=== PATIENT | female | born 1995 | race African-American/Black ===

== ENCOUNTER 2018-02-25 13:17 | Emergency (ER) | payer OTHER ==
[2018-02-25 14:19] LABS: Basophils # (auto) 0 uL; Basophils % (auto) 0.4 % (0.0-2.0); Eosinophils # (auto) 0.1 uL; Eosinophils % (auto) 1.5 % (0.0-7.0); Hematocrit 39.8 % (36.0-46.0); Hemoglobin 13.4 g/dL (12.2-16.2); Lymphocytes # (auto) 0.9 uL; Lymphocytes % (auto) 14.7 % (10.0-50.0); Mean Corpuscular Hemoglobin 30.3 pg (28.0-32.0); Mean Corpuscular Hgb Conc. 33.7 g/dL (32.0-36.0); Mean Corpuscular Volume 89.8 fL (80.0-100.0); Monocytes # (auto) 0.2 uL; Monocytes % (auto) 3.6 % (0.0-12.0); Neutrophils # (auto) 4.7 uL; Neutrophils % (auto) 79.8 % (37.0-80.0); Nucleated Red Blood Cells % 0.1 %; Platelet Count (auto) 106 10^3/uL (140-450); Red Blood Cells 4.43 10^6/uL (4.0-5.20); Red Cell Distribution Width 14.7 % (11.8-14.3); White Blood Cell 5.9 10^3/uL (4.4-10.8)
[2018-02-25 14:25] LABS: Urine Bacteria NONE SEEN /hpf (None Seen); Urine Blood Negative /uL (Negative); Urine Mucus FEW (None Seen); Urine Specific Gravity 1.017 (1.001-1.035); Urine WBC 8 /hpf (0 - 5)
[2018-02-25 14:34] LABS: Albumin 3.4 g/dL (3.4-5.0); BUN/Creatinine Ratio 22.4; Bilirubin, Total 0.3 mg/dL (0.2-1.0); Calcium 8.6 mg/dL (8.5-10.1); Potassium 3.4 mmol/L (3.5-5.1)
[2018-02-25] MEDS ORDERED: ACETAMINOPHEN 650 mg PER 20 mL UD PO ONE (16:15)
[2018-02-25] MEDS ORDERED: ACETAMINOPHEN 650 mg PER 20 mL UD ONE (16:16)
[2018-02-25 16:32] VITALS: BP 127/95
== END 2018-02-25 15:41 | disposition home or self-care (01) ==
LOC: EDBD 13:17 → ER 13:22
DX: R56.9 Unspecified convulsions (principal); N39.0 Urinary tract infection, site not specified
CPT/HCPCS: 36415; 80053; 81001; 85025

== ENCOUNTER 2018-04-14 09:38 | Inpatient (IN) | payer MEDICAID, OTHER ==
[~2018-04-14] VITALS: Ht 165.1 cm; Wt 26.8 kg
[2018-04-14] MEDS ORDERED: LIDOCAINE 2% (LOCAL ANESTH.) PF 5ml SDV ONE (11:08)
[2018-04-14] MEDS ORDERED: GASTROGRAFIN 30 ML SOL ONE ×4 (11:28→14:58)
[2018-04-14] MEDS ORDERED: SODIUM CHLORIDE 0.9% 500 ML IVB ONE ×2 (15:34→16:15)
[2018-04-14] MEDS ORDERED: SODIUM CHLORIDE 0.9% 1,000 ML IV SCH (15:51)
[2018-04-14] MEDS ORDERED: NITROGLYCERIN 0.4 MG SL TAB SL PRN (16:00)
[2018-04-14] MEDS ORDERED: PROMETHAZINE HCL 25 MG/ML 1ML IV PRN (16:00)
[2018-04-14] MEDS ORDERED: MORPHINE SULF INJ 2 MG/ML SYRINGE 1ML IV PRN (16:00)
[2018-04-14] MEDS ORDERED: PANTOPRAZOLE 40 MG/10 ML VIAL IV ONE (16:00)
[2018-04-14 16:36] LABS: Basophils # (auto) 0 uL; Basophils % (auto) 0.4 % (0.0-2.0); Eosinophils # (auto) 0 uL; Eosinophils % (auto) 0.2 % (0.0-7.0); Hematocrit 43.8 % (36.0-46.0); Hemoglobin 14.4 g/dL (12.2-16.2); Lymphocytes # (auto) 1.6 uL; Lymphocytes % (auto) 13.2 % (10.0-50.0); Mean Corpuscular Hgb Conc. 32.8 g/dL (32.0-36.0); Mean Corpuscular Volume 91.4 fL (80.0-100.0); Monocytes # (auto) 0.5 uL; Neutrophils # (auto) 9.9 uL; Neutrophils % (auto) 82.2 % (37.0-80.0); Platelet Count (auto) 240 10^3/uL (140-450); Red Blood Cells 4.79 10^6/uL (4.0-5.20); Red Cell Distribution Width 15.4 % (11.8-14.3)
[2018-04-14 16:48] LABS: INR 0.99 (0.9-1.15); Partial Thromboplastin Time 26.7 sec (23.78-33.04); Prothrombin Time 10.6 sec (9.27-12.13)
[2018-04-14 17:23] LABS: BUN/Creatinine Ratio 43.4; Calcium 9.2 mg/dL (8.5-10.1); Potassium 3.9 mmol/L (3.5-5.1)
[2018-04-14] MEDS ORDERED: cefTRIAXone 1GM/10ml IVPUSH 10 ML IV ONE (17:45)
[2018-04-14] MEDS: D5W/SOD CHLO 0.9% 1,000 ML IV SCH (18:18)
[2018-04-14 20:30] VITALS: BP 104/64
[2018-04-14 21:42] VITALS: BP 104/64
[2018-04-15 05:13] VITALS: BP 104/57
[2018-04-15 08:32] VITALS: BP 105/54
[2018-04-15] MEDS: PANTOPRAZOLE 40 MG/10 ML VIAL IV SCH (09:52)
[2018-04-15] MEDS: cefTRIAXone 1GM/10ml IVPUSH 10 ML IV SCH (09:52)
[2018-04-15 13:00] VITALS: BP 95/56
[2018-04-15] MEDS: D5W/SOD CHLO 0.9% 1,000 ML IV SCH ×2 (13:23→16:00)
[2018-04-15] MEDS ORDERED: LORazepam 2MG/ML-1ML VIAL IV PRN (16:00)
[2018-04-15] MEDS ORDERED: FLUO-125 PO (16:19)
[2018-04-15] MEDS ORDERED: ARIP1TAB7 PO (16:19)
[2018-04-15] MEDS ORDERED: TRAZ50TA2 PO (16:19)
[2018-04-15] MEDS ORDERED: BACL10TA PO (16:19)
[2018-04-15 16:53] VITALS: BP 109/47
[2018-04-15] MEDS ORDERED: BACLOFEN 10 MG TAB PO PRN (17:00)
[2018-04-15 17:01] LABS: Urine Bacteria NONE SEEN /hpf (None Seen); Urine Blood Negative /uL (Negative); Urine Mucus FEW (None Seen); Urine Specific Gravity 1.024 (1.001-1.035); Urine WBC 12 /hpf (0 - 5)
[2018-04-15 22:00] VITALS: BP 105/56
[2018-04-15] MEDS ORDERED: traZODone HCL 50 MG TAB PO SCH (22:00)
[2018-04-16] MEDS: D5W/SOD CHLO 0.9% 1,000 ML IV SCH ×3 (02:23→20:51)
[2018-04-16 05:30] VITALS: BP 93/54
[2018-04-16 09:00] VITALS: BP 113/51
[2018-04-16] MEDS: LORazepam 2MG/ML-1ML VIAL IV PRN (09:04)
[2018-04-16] MEDS: cefTRIAXone 1GM/10ml IVPUSH 10 ML IV SCH (09:08)
[2018-04-16] MEDS ORDERED: ARIPIPRAZOLE 20 MG PO SCH (10:00)
[2018-04-16] MEDS ORDERED: FLUoxetine HCL 20 MG CAP PO SCH (10:00)
[2018-04-16] MEDS: PANTOPRAZOLE 40 MG/10 ML VIAL IV SCH (11:45)
[2018-04-16] MEDS: AMPICILLIN INJ 500 MG in SODIUM CHL 0.9% 50 ML IV SCH ×2 (11:46→18:42)
[2018-04-16] MEDS: LACTULOSE 20Gm/30ML SOLN PO PRN (11:47)
[2018-04-16] MEDS ORDERED: MAGNESIUM CITRATE SOLUTION 300 ML BTL NG ONE (12:15)
[2018-04-16 13:00] VITALS: BP 120/53
[2018-04-16] MEDS ORDERED: PPN PER PHARMACY 0 ML IV SCH (13:00)
[2018-04-16 15:00] LABS: Albumin 2.8 g/dL (3.4-5.0); BUN/Creatinine Ratio 29.4; Bilirubin, Total 0.3 mg/dL (0.2-1.0); Magnesium 2.3 mg/dL (1.6-2.6); Potassium 3.1 mmol/L (3.5-5.1); Total Protein 7.1 g/dL (6.4-8.2)
[2018-04-16] MEDS ORDERED: POTASSIUM PHOSPHATE 44 MEQ in D5W 5% 250 ML IV ONE (16:00)
[2018-04-16 16:53] VITALS: BP 116/74
[2018-04-16] MEDS: CLINIMIX PER PHARMACY IV NR (21:00)
[2018-04-16 21:33] VITALS: BP 113/64
[2018-04-16] MEDS ORDERED: DOCUSATE ORAL LIQUID 100 MG/10 ML UD GT SCH (22:00)
[2018-04-17] MEDS ORDERED: DEXTROSE (50%) 50ML SYRG IV SCH
[2018-04-17] MEDS: AMPICILLIN INJ 500 MG in SODIUM CHL 0.9% 50 ML IV SCH ×4 (00:10→21:11)
[2018-04-17] MEDS: ACCU-CHEK COMFORT CURVE STRIP VI SCH ×4 (00:11→18:44)
[2018-04-17] MEDS: MORPHINE SULF INJ 2 MG/ML SYRINGE 1ML IV PRN ×2 (03:58→21:02)
[2018-04-17 04:41] VITALS: BP 137/80
[2018-04-17] MEDS: InsuLIN REG 1unit/0.01ml Soln (100units/ml) SC SCH ×4 (05:21→18:00)
[2018-04-17] MEDS: LORazepam 2MG/ML-1ML VIAL IV PRN (06:07)
[2018-04-17 09:00] VITALS: BP 130/60
[2018-04-17] MEDS: PANTOPRAZOLE 40 MG/10 ML VIAL IV SCH (10:32)
[2018-04-17] MEDS: cefTRIAXone 1GM/10ml IVPUSH 10 ML IV SCH (10:33)
[2018-04-17 11:00] LABS: Albumin 2.8 g/dL (3.4-5.0); BUN/Creatinine Ratio 21.4; Bilirubin, Total 0.4 mg/dL (0.2-1.0); Calcium 8.1 mg/dL (8.5-10.1); Phosphorus 2.5 mg/dL (2.5-4.90); Potassium 3.6 mmol/L (3.5-5.1); Pre Albumin 15.8 mg/dL (20.0-40.0); Total Protein 7.2 g/dL (6.4-8.2)
[2018-04-17 13:00] VITALS: BP 120/58
[2018-04-17] MEDS ORDERED: FUROSEMIDE 20 MG/2 ML VIAL ONE (14:22)
[2018-04-17] MEDS: D5W/SOD CHLO 0.9% 1,000 ML IV SCH (16:01)
[2018-04-17 17:00] VITALS: BP 116/56
[2018-04-17] MEDS: CLINIMIX PER PHARMACY IV NR (19:49)
[2018-04-17] MEDS ORDERED: PPN PER PHARMACY IV NR ×16 (20:00)
[2018-04-17] MEDS: PPN PER PHARMACY IV NR ×8 (20:52)
[2018-04-17 21:38] VITALS: BP 124/72
[2018-04-18] MEDS: AMPICILLIN INJ 500 MG in SODIUM CHL 0.9% 50 ML IV SCH ×4 (03:14→21:58)
[2018-04-18 05:00] VITALS: BP 114/59
[2018-04-18] MEDS: InsuLIN REG 1unit/0.01ml Soln (100units/ml) SC SCH ×4 (06:00→18:00)
[2018-04-18] MEDS: ACCU-CHEK COMFORT CURVE STRIP VI SCH ×4 (06:11→18:09)
[2018-04-18 06:43] LABS: Basophils # (auto) 0 uL; Basophils % (auto) 0.3 % (0.0-2.0); Eosinophils # (auto) 0.1 uL; Eosinophils % (auto) 1.4 % (0.0-7.0); Hematocrit 38.9 % (36.0-46.0); Hemoglobin 13.1 g/dL (12.2-16.2); Mean Corpuscular Hemoglobin 30.8 pg (28.0-32.0); Mean Corpuscular Hgb Conc. 33.7 g/dL (32.0-36.0); Mean Corpuscular Volume 91.2 fL (80.0-100.0); Monocytes # (auto) 0.6 uL; Neutrophils # (auto) 7.1 uL; Neutrophils % (auto) 72.3 % (37.0-80.0); Platelet Count (auto) 234 10^3/uL (140-450); Red Blood Cells 4.27 10^6/uL (4.0-5.20); Red Cell Distribution Width 14.6 % (11.8-14.3); White Blood Cell 9.9 10^3/uL (4.4-10.8)
[2018-04-18 07:07] LABS: Albumin 3.2 g/dL (3.4-5.0); BUN/Creatinine Ratio 56.3; Bilirubin, Total 0.3 mg/dL (0.2-1.0); Calcium 8.7 mg/dL (8.5-10.1); Magnesium 2.3 mg/dL (1.6-2.6); Phosphorus 3.1 mg/dL (2.5-4.90); Potassium 3.4 mmol/L (3.5-5.1)
[2018-04-18 09:00] VITALS: BP 118/62
[2018-04-18] MEDS: cefTRIAXone 1GM/10ml IVPUSH 10 ML IV SCH (09:55)
[2018-04-18] MEDS: PANTOPRAZOLE 40 MG/10 ML VIAL IV SCH (09:56)
[2018-04-18] MEDS: LORazepam 2MG/ML-1ML VIAL IV PRN ×2 (10:24→20:19)
[2018-04-18] MEDS ORDERED: POTASSIUM CHL 20MEQ/100ML 100 ML IV ONE (10:30)
[2018-04-18] MEDS: D5W/SOD CHLO 0.9% 1,000 ML IV SCH (12:00)
[2018-04-18 13:00] VITALS: BP 120/60
[2018-04-18] MEDS: MORPHINE SULF INJ 2 MG/ML SYRINGE 1ML IV PRN ×2 (16:39→23:05)
[2018-04-18 17:00] VITALS: BP 120/58
[2018-04-18] MEDS: PPN PER PHARMACY IV NR ×8 (20:00)
[2018-04-18] MEDS ORDERED: PPN PER PHARMACY IV NR ×10 (20:00)
[2018-04-18] MEDS ORDERED: TPN PER PHARMACY IV NR ×9 (20:00)
[2018-04-18 20:52] VITALS: BP 115/69
[2018-04-19] MEDS: MORPHINE SULF INJ 2 MG/ML SYRINGE 1ML IV PRN (03:19)
[2018-04-19] MEDS: AMPICILLIN INJ 500 MG in SODIUM CHL 0.9% 50 ML IV SCH ×4 (04:08→21:25)
[2018-04-19 05:09] VITALS: BP 148/70
[2018-04-19] MEDS: ACCU-CHEK COMFORT CURVE STRIP VI SCH ×4 (05:43→17:14)
[2018-04-19] MEDS: InsuLIN REG 1unit/0.01ml Soln (100units/ml) SC SCH ×4 (05:43→17:14)
[2018-04-19 06:08] LABS: Albumin 3.2 g/dL (3.4-5.0); BUN/Creatinine Ratio 65.4; Bilirubin, Total 0.3 mg/dL (0.2-1.0); Calcium 8.7 mg/dL (8.5-10.1); Magnesium 2.3 mg/dL (1.6-2.6); Phosphorus 3.5 mg/dL (2.5-4.90); Potassium 3.9 mmol/L (3.5-5.1)
[2018-04-19 08:00] VITALS: BP 120/63
[2018-04-19 08:31] VITALS: BP 120/63
[2018-04-19] MEDS: D5W/SOD CHLO 0.9% 1,000 ML IV SCH ×2 (09:01→10:00)
[2018-04-19] MEDS: cefTRIAXone 1GM/10ml IVPUSH 10 ML IV SCH (09:01)
[2018-04-19] MEDS: PANTOPRAZOLE 40 MG/10 ML VIAL IV SCH (09:01)
[2018-04-19] MEDS: LEVOFLOXACIN 500MG 100 ML IV SCH (11:54)
[2018-04-19 12:34] VITALS: BP 118/73
[2018-04-19 16:54] VITALS: BP 143/83
[2018-04-19] MEDS ORDERED: PPN PER PHARMACY IV NR ×10 (20:00)
[2018-04-19 21:15] VITALS: BP 104/69
[2018-04-20] MEDS: ACCU-CHEK COMFORT CURVE STRIP VI SCH ×4 (00:06→17:35)
[2018-04-20] MEDS: MORPHINE SULFATE 4 MG/ML SYR/VIAL IV PRN ×2 (00:44→21:13)
[2018-04-20] MEDS: LORazepam 2MG/ML-1ML VIAL IV PRN (01:29)
[2018-04-20] MEDS: AMPICILLIN INJ 500 MG in SODIUM CHL 0.9% 50 ML IV SCH ×3 (04:27→21:15)
[2018-04-20 05:11] VITALS: BP 100/52
[2018-04-20] MEDS: InsuLIN REG 1unit/0.01ml Soln (100units/ml) SC SCH ×4 (06:00→17:35)
[2018-04-20 08:02] LABS: Albumin 3.3 g/dL (3.4-5.0); BUN/Creatinine Ratio 51.3; Bilirubin, Total 0.3 mg/dL (0.2-1.0); Calcium 8.9 mg/dL (8.5-10.1); Magnesium 2.4 mg/dL (1.6-2.6); Phosphorus 3.4 mg/dL (2.5-4.90); Potassium 4.4 mmol/L (3.5-5.1); Pre Albumin 19.8 mg/dL (20.0-40.0); Total Protein 8.2 g/dL (6.4-8.2)
[2018-04-20] MEDS: D5W/SOD CHLO 0.9% 1,000 ML IV SCH (09:30)
[2018-04-20 09:44] VITALS: BP 116/82
[2018-04-20] MEDS: PANTOPRAZOLE 40 MG/10 ML VIAL IV SCH (10:36)
[2018-04-20] MEDS: LEVOFLOXACIN 500MG 100 ML IV SCH (13:21)
[2018-04-20] MEDS ORDERED: SODIUM CHLORIDE LOCK 10 ML ONE (14:00)
[2018-04-20] MEDS ORDERED: diphenhdrAMINE HCL 50 MG/1 ML VL ONE (14:00)
[2018-04-20] MEDS ORDERED: LIDOCAINE VISCOUS 2% 15ML UD ONE (14:00)
[2018-04-20] MEDS ORDERED: MIDAZOLAM HCL 5 MG/ML-1ML VIAL ONE (14:00)
[2018-04-20] MEDS ORDERED: fentaNYL CITRATE 100 MCG/2 ML VL ONE (14:01)
[2018-04-20 14:43] VITALS: BP 122/69
[2018-04-20] MEDS ORDERED: PROPOFOL 10 MG/ML 20 ML IV ONE (14:57)
[2018-04-20] MEDS ORDERED: LIDOCAINE 2% (LOCAL ANESTH.) PF 5ml SDV ONE (14:57)
[2018-04-20] MEDS ORDERED: ceFAZolin 1GM/50ML 50 ML IV ONE (15:23)
[2018-04-20] MEDS ORDERED: HYDROmorphone HCL 2 MG/ML VL IV PRN (15:30)
[2018-04-20] MEDS ORDERED: LABETALOL HCL 5 MG/ML 4ML SYRINGE IV PRN (15:30)
[2018-04-20] MEDS: FLUCONAZOLE 200MG/100ML 100 ML IV SCH (17:34)
[2018-04-20] MEDS ORDERED: PPN PER PHARMACY IV NR ×9 (20:00)
[2018-04-20 21:30] VITALS: BP 158/78
[2018-04-21] MEDS: LORazepam 2MG/ML-1ML VIAL IV PRN (00:37)
[2018-04-21] MEDS: ACCU-CHEK COMFORT CURVE STRIP VI SCH ×4 (00:38→19:30)
[2018-04-21] MEDS: AMPICILLIN INJ 500 MG in SODIUM CHL 0.9% 50 ML IV SCH ×5 (04:07→22:29)
[2018-04-21 05:00] VITALS: BP 110/57
[2018-04-21] MEDS: InsuLIN REG 1unit/0.01ml Soln (100units/ml) SC SCH ×4 (06:00→18:00)
[2018-04-21 06:14] LABS: Basophils # (auto) 0 uL; Basophils % (auto) 0.5 % (0.0-2.0); Eosinophils # (auto) 0.4 uL; Eosinophils % (auto) 5.1 % (0.0-7.0); Hematocrit 39.3 % (36.0-46.0); Lymphocytes # (auto) 2.5 uL; Lymphocytes % (auto) 29.3 % (10.0-50.0); Mean Corpuscular Hemoglobin 30.2 pg (28.0-32.0); Mean Corpuscular Hgb Conc. 33.1 g/dL (32.0-36.0); Mean Corpuscular Volume 91.3 fL (80.0-100.0); Monocytes # (auto) 0.6 uL; Monocytes % (auto) 6.5 % (0.0-12.0); Neutrophils % (auto) 58.6 % (37.0-80.0); Nucleated Red Blood Cells % 0.1 %; Platelet Count (auto) 231 10^3/uL (140-450); Red Blood Cells 4.31 10^6/uL (4.0-5.20); Red Cell Distribution Width 14.8 % (11.8-14.3); White Blood Cell 8.6 10^3/uL (4.4-10.8)
[2018-04-21] MEDS: D5W/SOD CHLO 0.9% 1,000 ML IV SCH (06:28)
[2018-04-21 06:38] LABS: Albumin 2.9 g/dL (3.4-5.0); Bilirubin, Total 0.3 mg/dL (0.2-1.0); Calcium 8.8 mg/dL (8.5-10.1); Magnesium 2.3 mg/dL (1.6-2.6); Phosphorus 3.1 mg/dL (2.5-4.90); Potassium 3.7 mmol/L (3.5-5.1); Total Protein 7.3 g/dL (6.4-8.2)
[2018-04-21 09:22] VITALS: BP 116/70
[2018-04-21] MEDS: LEVOFLOXACIN 500MG 100 ML IV SCH (11:00)
[2018-04-21 14:38] VITALS: BP 117/69
[2018-04-21] MEDS: FLUCONAZOLE 200MG/100ML 100 ML IV SCH (15:39)
[2018-04-21] MEDS: PANTOPRAZOLE 40 MG/10 ML VIAL IV SCH (15:39)
[2018-04-21 17:16] VITALS: BP 144/73
[2018-04-21] MEDS ORDERED: PPN PER PHARMACY IV NR ×11 (20:00)
[2018-04-21 22:00] VITALS: BP 123/68
[2018-04-21] MEDS: MORPHINE SULFATE 4 MG/ML SYR/VIAL IV PRN (22:30)
[2018-04-21] MEDS: LACTULOSE 20Gm/30ML SOLN PO PRN (22:30)
[2018-04-22] MEDS ORDERED: Jevity 1.2 Cal/Fiber 1 Liter GT SCH (00:15)
[2018-04-22] MEDS: ACCU-CHEK COMFORT CURVE STRIP VI SCH ×3 (00:29→12:00)
[2018-04-22] MEDS: AMPICILLIN INJ 500 MG in SODIUM CHL 0.9% 50 ML IV SCH ×3 (04:15→16:00)
[2018-04-22] MEDS: D5W/SOD CHLO 0.9% 1,000 ML IV SCH (04:42)
[2018-04-22] MEDS: MORPHINE SULFATE 4 MG/ML SYR/VIAL IV PRN ×3 (04:52→15:21)
[2018-04-22 05:00] VITALS: BP 157/81
[2018-04-22] MEDS: InsuLIN REG 1unit/0.01ml Soln (100units/ml) SC SCH ×3 (06:00→12:00)
[2018-04-22 06:13] LABS: Albumin 3.2 g/dL (3.4-5.0); BUN/Creatinine Ratio 51.5; Bilirubin, Total 0.5 mg/dL (0.2-1.0); Calcium 8.9 mg/dL (8.5-10.1); Magnesium 1.9 mg/dL (1.6-2.6); Phosphorus 3.6 mg/dL (2.5-4.90); Potassium 3.7 mmol/L (3.5-5.1)
[2018-04-22 09:19] VITALS: BP 100/75
[2018-04-22] MEDS ORDERED: BACLOFEN 10 MG TAB PEG PRN (09:45)
[2018-04-22] MEDS ORDERED: LACTULOSE 20Gm/30ML SOLN PEG PRN (09:45)
[2018-04-22] MEDS ORDERED: LORazepam 2MG/ML-1ML VIAL IV PRN (09:45)
[2018-04-22] MEDS ORDERED: FLUC200T50 PO (09:55)
[2018-04-22] MEDS ORDERED: LACT10SO3 PEG (09:55)
[2018-04-22] MEDS ORDERED: LEVO-28 PO (09:55)
[2018-04-22] MEDS ORDERED: AMPI500C8 PO (09:55)
[2018-04-22] MEDS ORDERED: FLUoxetine HCL 20 MG CAP PEG SCH (10:00)
[2018-04-22] MEDS ORDERED: ABILIFY 20 MG PEG SCH (10:00)
[2018-04-22] MEDS: PANTOPRAZOLE 40 MG/10 ML VIAL IV SCH (11:08)
[2018-04-22] MEDS: FLUCONAZOLE 200MG/100ML 100 ML IV SCH (11:54)
[2018-04-22 12:41] VITALS: BP 108/72
[2018-04-22] MEDS: LEVOFLOXACIN 500MG 100 ML IV SCH (14:41)
[2018-04-22 17:04] VITALS: BP 110/69
[2018-04-22] MEDS ORDERED: SODIUM ACETATE IV NR ×30 (20:00)
[2018-04-22] MEDS ORDERED: SODIUM CHLORIDE IV NR ×30 (20:00)
[2018-04-22] MEDS ORDERED: FAT EMULSION IV NR ×30 (20:00)
[2018-04-22] MEDS ORDERED: [UNRECOGNIZED DRUG - OTHER] IV NR ×30 (20:00)
[2018-04-22] MEDS ORDERED: traZODone HCL 50 MG TAB PEG SCH (22:00)
== END 2018-04-22 19:05 | disposition home health service (06) | DRG 254 ==
LOC: ER 09:38 → TELE 09:39 → TELE-CENTR 20:30 → CENTRAL 04-17 11:23
PROVIDERS: ADMIT Internal Medicine; ATTEND Internal Medicine
PROC: 0WJP8ZZ Inspection of Gastrointestinal Tract, Via Natural or Artificial Opening Endoscopic Approach (ICD-10-PCS; 2018-04-20)
PROC: 0D20XUZ Change Feeding Device in Upper Intestinal Tract, External Approach (ICD-10-PCS; principal; 2018-04-20 14:45)
DX: Z43.1 Encounter for attention to gastrostomy (principal); G93.40 Encephalopathy, unspecified; G82.50 Quadriplegia, unspecified; E43 Unspecified severe protein-calorie malnutrition; L89.154 Pressure ulcer of sacral region, stage 4; R13.10 Dysphagia, unspecified; N13.4 Hydroureter; Z74.01 Bed confinement status; G40.909 Epilepsy, unspecified, not intractable, without status epilepticus; Z68.1 Body mass index [BMI] 19.9 or less, adult; F71 Moderate intellectual disabilities; K56.41 Fecal impaction; N13.2 Hydronephrosis with renal and ureteral calculous obstruction; Z79.899 Other long term (current) drug therapy; Z96.89 Presence of other specified functional implants; Z53.9 Procedure and treatment not carried out, unspecified reason; K44.9 Diaphragmatic hernia without obstruction or gangrene; K29.70 Gastritis, unspecified, without bleeding; B96.5 Pseudomonas (aeruginosa) (mallei) (pseudomallei) as the cause of diseases classified elsewhere; B96.1 Klebsiella pneumoniae [K. pneumoniae] as the cause of diseases classified elsewhere; Z71.3 Dietary counseling and surveillance
CPT/HCPCS: 36415; 43246; 71045; 74018; 74021; 74176; 76775; 78707; 80048; 80053; 81001; 82040; 82962; 83735; 84100; 84132; 84478; 85025; 85610; 85730; 87077; 87081; 87086; 87186; 87205; 94761; A6257; C9113; J0690; J0696; J1450; J1956; J2001; J2250; J2704; J3480; J7042; J7060; J7131

== ENCOUNTER 2018-05-06 11:40 | Emergency (ER) | payer MEDICAID ==
[~2018-05-06] VITALS: Ht 180.3 cm; Wt 26.8 kg
[~2018-05-06 11:40] MED LIST: AMPI500C8 PO; ARIP1TAB7 PO; BACL10TA PO; FLUC200T50 PO; FLUO-125 PO; LACT10SO3 PEG; LEVO-28 PO; TRAZ50TA2 PO
[2018-05-06 11:54] VITALS: BP 99/42
[2018-05-06 13:04] LABS: Urine Bacteria MANY /hpf (None Seen); Urine Blood TRACE /uL (Negative); Urine Specific Gravity 1.013 (1.001-1.035); Urine WBC 28 /hpf (0 - 5)
== END 2018-05-06 13:37 | disposition home or self-care (01) ==
LOC: ER 11:40
DX: N39.0 Urinary tract infection, site not specified (principal)
CPT/HCPCS: 81001

== ENCOUNTER 2018-06-23 14:17 | Inpatient (IN) | payer MEDICAID ==
[~2018-06-23] VITALS: Ht 144.8 cm; Wt 47.8 kg
[2018-06-23] MEDS ORDERED: SODIUM CHLORIDE 0.9% 1,000 ML IVB ONE (15:15)
[2018-06-23] MEDS ORDERED: cefTRIAXone 1GM/50ML D5W 50 ML IV ONE (15:15)
[2018-06-23] MEDS ORDERED: ACETAMINOPHEN 650 mg PER 20 mL UD GT ONE (15:15)
[2018-06-23 15:35] LABS: Basophils # (auto) 0.1 uL; Basophils % (auto) 0.4 % (0.0-2.0); Eosinophils # (auto) 0.1 uL; Eosinophils % (auto) 0.5 % (0.0-7.0); Hemoglobin 12.8 g/dL (12.2-16.2); Lymphocytes # (auto) 1.9 uL; Lymphocytes % (auto) 15.7 % (10.0-50.0); Mean Corpuscular Hemoglobin 28.9 pg (28.0-32.0); Mean Corpuscular Hgb Conc. 32.8 g/dL (32.0-36.0); Mean Corpuscular Volume 88.1 fL (80.0-100.0); Monocytes # (auto) 1.1 uL; Monocytes % (auto) 8.9 % (0.0-12.0); Neutrophils # (auto) 9.1 uL; Neutrophils % (auto) 74.5 % (37.0-80.0); Platelet Count (auto) 286 10^3/uL (140-450); Red Blood Cells 4.43 10^6/uL (4.0-5.20); Red Cell Distribution Width 15.2 % (11.8-14.3); White Blood Cell 12.2 10^3/uL (4.4-10.8)
[2018-06-23 15:47] LABS: INR 1.05 (0.9-1.15); Prothrombin Time 11.2 sec (9.27-12.13)
[2018-06-23 15:53] LABS: Albumin 3.3 g/dL (3.4-5.0); Potassium 4.2 mmol/L (3.5-5.1)
[2018-06-23 15:57] LABS: Bilirubin, Total 0.6 mg/dL (0.2-1.0); Total Protein 8.8 g/dL (6.4-8.2)
[2018-06-23] MEDS: SODIUM CHLORIDE 0.9% 1,000 ML IV SCH (16:53)
[2018-06-23] MEDS ORDERED: NITROGLYCERIN 0.4 MG SL TAB SL PRN (17:00)
[2018-06-23] MEDS ORDERED: MORPHINE SULFATE 4 MG/ML SYR/VIAL IV PRN (17:00)
[2018-06-23] MEDS ORDERED: CLINDAMYCIN 600MG IV 50 ML IV ONE (17:00)
[2018-06-23] MEDS ORDERED: PROMETHAZINE HCL 25 MG/ML 1ML IV PRN (17:00)
[2018-06-23] MEDS ORDERED: ARIP1TAB7 PO (17:04)
[2018-06-23] MEDS ORDERED: BACL10TA PO (17:08)
[2018-06-23] MEDS ORDERED: [UNRECOGNIZED DRUG - CODE] PO (17:12)
[2018-06-23 17:25] LABS: Urine Bacteria FEW /hpf (None Seen); Urine Blood Negative /uL (Negative); Urine Specific Gravity 1.016 (1.001-1.035); Urine WBC 66 /hpf (0 - 5)
[2018-06-23] MEDS ORDERED: LORazepam 2MG/ML-1ML VIAL ONE (18:48)
[2018-06-23] MEDS: LORazepam 2MG/ML-1ML VIAL IV PRN (18:51)
[2018-06-23 19:50] VITALS: BP 110/45
[2018-06-23 22:33] VITALS: BP 127/60
[2018-06-23] MEDS: CLINDAMYCIN 600MG IV 50 ML IV SCH (23:30)
[2018-06-24] VITALS (8 sets, daily range): BP systolic 84–130; BP diastolic 44–84
[2018-06-24] MEDS: SODIUM CHLORIDE 0.9% 1,000 ML IV SCH ×3 (00:16→21:31)
[2018-06-24] MEDS ORDERED: ALBUMIN 5% 250 ML IV ONE (06:45)
[2018-06-24] MEDS: CLINDAMYCIN 600MG IV 50 ML IV SCH ×2 (07:06→14:00)
[2018-06-24 07:28] LABS: Basophils # (auto) 0 uL; Basophils % (auto) 0.5 % (0.0-2.0); Eosinophils # (auto) 0.2 uL; Eosinophils % (auto) 1.7 % (0.0-7.0); Hematocrit 35.4 % (36.0-46.0); Hemoglobin 11.1 g/dL (12.2-16.2); Lymphocytes # (auto) 3.7 uL; Lymphocytes % (auto) 38.5 % (10.0-50.0); Mean Corpuscular Hemoglobin 28.9 pg (28.0-32.0); Mean Corpuscular Hgb Conc. 31.4 g/dL (32.0-36.0); Monocytes # (auto) 0.8 uL; Monocytes % (auto) 8.7 % (0.0-12.0); Neutrophils # (auto) 4.9 uL; Neutrophils % (auto) 50.6 % (37.0-80.0); Platelet Count (auto) 225 10^3/uL (140-450); Red Blood Cells 3.84 10^6/uL (4.0-5.20); Red Cell Distribution Width 15.5 % (11.8-14.3); White Blood Cell 9.7 10^3/uL (4.4-10.8)
[2018-06-24] MEDS ORDERED: cefTRIAXone 1GM/50ML D5W 50 ML IV SCH (09:00)
[2018-06-24] MEDS ORDERED: ARIP1TAB7 PO (10:27)
[2018-06-24] MEDS ORDERED: VANCOMYCIN PER PHARMACY 0 MG IV SCH (16:45)
[2018-06-24] MEDS: Jevity 1.2 Cal/Fiber 1 Liter GT SCH (17:00)
[2018-06-24] MEDS: PIPERACILLIN-TAZOB 3.375GM 100 ML IV SCH (17:24)
[2018-06-24] MEDS: VANCOMYCIN 500 MG in D5W 5% 100 ML IV SCH (20:28)
[2018-06-24] MEDS: ASCORBIC ACID 500 MG TAB PO SCH (21:31)
[2018-06-24] MEDS: LORazepam 2MG/ML-1ML VIAL IV PRN (22:01)
[2018-06-25] MEDS: PIPERACILLIN-TAZOB 3.375GM 100 ML IV SCH ×3 (00:35→11:59)
[2018-06-25 05:00] VITALS: BP 86/38
[2018-06-25] MEDS ORDERED: SODIUM CHL 0.9% 250 ML IV ONE (05:06)
[2018-06-25] MEDS: VANCOMYCIN 500 MG in D5W 5% 100 ML IV SCH ×2 (05:39→17:52)
[2018-06-25] MEDS: SODIUM CHLORIDE 0.9% 1,000 ML IV SCH (05:39)
[2018-06-25] MEDS ORDERED: ALBUMIN 25% 100 ML IV ONE (07:15)
[2018-06-25 08:39] VITALS: BP 116/53
[2018-06-25] MEDS: ASCORBIC ACID 500 MG TAB PO SCH ×2 (09:28→23:36)
[2018-06-25] MEDS: MULTIPLE VITAMINS W/ MINERALS TAB PO SCH (09:28)
[2018-06-25] MEDS: ACETAMINOPHEN 500 MG TAB PO PRN (12:01)
[2018-06-25 12:29] VITALS: BP 124/64
[2018-06-25] MEDS ORDERED: NITROFURANTOIN (MONO) 100 mg CAP PO SCH (15:00)
[2018-06-25 16:53] VITALS: BP 119/67
[2018-06-25] MEDS ORDERED: ERTAPENEM SOD INJ 1 GM in SODIUM CHL 0.9% 50 ML IV ONE (18:00)
[2018-06-25 22:00] VITALS: BP 111/72
[2018-06-25] MEDS: MEROPENEM 1GM IVPB 100 ML IV SCH (22:00)
[2018-06-26] MEDS: SODIUM CHLORIDE 0.9% 1,000 ML IV SCH ×3 (01:46→14:46)
[2018-06-26 05:00] VITALS: BP 138/64
[2018-06-26] MEDS: VANCOMYCIN 500 MG in D5W 5% 100 ML IV SCH ×3 (05:26→22:02)
[2018-06-26] MEDS: MEROPENEM 1GM IVPB 100 ML IV SCH ×3 (05:27→22:00)
[2018-06-26 06:42] LABS: Basophils # (auto) 0 uL; Basophils % (auto) 0.4 % (0.0-2.0); Eosinophils # (auto) 0.4 uL; Eosinophils % (auto) 4.7 % (0.0-7.0); Hematocrit 35.1 % (36.0-46.0); Hemoglobin 11.8 g/dL (12.2-16.2); Lymphocytes # (auto) 2.6 uL; Lymphocytes % (auto) 35.3 % (10.0-50.0); Mean Corpuscular Hemoglobin 29.5 pg (28.0-32.0); Mean Corpuscular Hgb Conc. 33.5 g/dL (32.0-36.0); Monocytes # (auto) 0.5 uL; Monocytes % (auto) 6.9 % (0.0-12.0); Neutrophils # (auto) 3.9 uL; Neutrophils % (auto) 52.7 % (37.0-80.0); Nucleated Red Blood Cells % 0.1 %; Platelet Count (auto) 266 10^3/uL (140-450); Red Blood Cells 3.99 10^6/uL (4.0-5.20); Red Cell Distribution Width 15.1 % (11.8-14.3); White Blood Cell 7.4 10^3/uL (4.4-10.8)
[2018-06-26 06:49] LABS: Potassium 3.8 mmol/L (3.5-5.1)
[2018-06-26 06:53] LABS: Albumin 3.7 g/dL (3.4-5.0); BUN/Creatinine Ratio 20.7; Calcium 8.9 mg/dL (8.5-10.1)
[2018-06-26 06:56] LABS: Bilirubin, Total 0.4 mg/dL (0.2-1.0); Total Protein 7.6 g/dL (6.4-8.2)
[2018-06-26 09:00] VITALS: BP 123/82
[2018-06-26] MEDS: MULTIPLE VITAMINS W/ MINERALS TAB PO SCH (09:40)
[2018-06-26] MEDS: ASCORBIC ACID 500 MG TAB PO SCH ×2 (09:40→22:02)
[2018-06-26] MEDS ORDERED: ERTAPENEM SOD INJ 1 GM in SODIUM CHL 0.9% 50 ML IV SCH (10:00)
[2018-06-26 13:00] VITALS: BP 127/76
[2018-06-26 17:00] VITALS: BP 132/77
[2018-06-26] MEDS: FREE WATER GT SCH ×2 (17:51→23:35)
[2018-06-26 20:00] VITALS: BP 116/75
[2018-06-26 22:00] VITALS: BP 116/75
[2018-06-27] VITALS (7 sets, daily range): BP systolic 113–149; BP diastolic 74–95
[2018-06-27] MEDS: SODIUM CHLORIDE 0.9% 1,000 ML IV SCH ×3 (03:50→22:04)
[2018-06-27] MEDS: FREE WATER GT SCH ×3 (05:03→18:00)
[2018-06-27] MEDS: MEROPENEM 1GM IVPB 100 ML IV SCH ×3 (05:08→22:00)
[2018-06-27] MEDS: VANCOMYCIN 500 MG in D5W 5% 100 ML IV SCH ×3 (06:00→22:06)
[2018-06-27] MEDS: MULTIPLE VITAMINS W/ MINERALS TAB PO SCH (10:48)
[2018-06-27] MEDS: ASCORBIC ACID 500 MG TAB PO SCH ×2 (10:48→22:06)
[2018-06-28] MEDS: FREE WATER GT SCH ×5 (00:28→23:21)
[2018-06-28 05:00] VITALS: BP 99/54
[2018-06-28] MEDS: VANCOMYCIN 500 MG in D5W 5% 100 ML IV SCH (05:06)
[2018-06-28] MEDS: MEROPENEM 1GM IVPB 100 ML IV SCH ×3 (05:06→21:07)
[2018-06-28 06:22] LABS: Basophils # (auto) 0 uL; Basophils % (auto) 0.3 % (0.0-2.0); Eosinophils # (auto) 0.1 uL; Eosinophils % (auto) 1.3 % (0.0-7.0); Hematocrit 40.2 % (36.0-46.0); Hemoglobin 13.1 g/dL (12.2-16.2); Lymphocytes # (auto) 2.5 uL; Lymphocytes % (auto) 22.7 % (10.0-50.0); Mean Corpuscular Hemoglobin 28.6 pg (28.0-32.0); Mean Corpuscular Hgb Conc. 32.6 g/dL (32.0-36.0); Mean Corpuscular Volume 87.6 fL (80.0-100.0); Monocytes # (auto) 0.6 uL; Monocytes % (auto) 5.7 % (0.0-12.0); Neutrophils # (auto) 7.8 uL; Nucleated Red Blood Cells % 0.1 %; Platelet Count (auto) 312 10^3/uL (140-450); Red Blood Cells 4.59 10^6/uL (4.0-5.20); Red Cell Distribution Width 15.2 % (11.8-14.3); White Blood Cell 11.1 10^3/uL (4.4-10.8)
[2018-06-28] MEDS: SODIUM CHLORIDE 0.9% 1,000 ML IV SCH ×2 (06:24→18:32)
[2018-06-28 06:31] LABS: BUN/Creatinine Ratio 23.1; Potassium 3.7 mmol/L (3.5-5.1)
[2018-06-28 06:32] LABS: Calcium 9.2 mg/dL (8.5-10.1)
[2018-06-28 09:00] VITALS: BP 96/55
[2018-06-28] MEDS: MULTIPLE VITAMINS W/ MINERALS TAB PO SCH (11:18)
[2018-06-28] MEDS: ASCORBIC ACID 500 MG TAB PO SCH ×2 (11:18→22:00)
[2018-06-28] MEDS: ACETAMINOPHEN 500 MG TAB PO PRN (12:39)
[2018-06-28 12:56] VITALS: BP 123/68
[2018-06-28] MEDS: LORazepam 2MG/ML-1ML VIAL IV PRN ×2 (13:14→19:37)
[2018-06-28 16:31] VITALS: BP 109/77
[2018-06-28] MEDS: VANCOMYCIN 750 MG in D5W 5% 250 ML IV SCH ×2 (18:32→22:54)
[2018-06-28 20:00] VITALS: BP 131/79
[2018-06-28 22:00] VITALS: BP 131/79
[2018-06-29] MEDS: SODIUM CHLORIDE 0.9% 1,000 ML IV SCH ×3 (02:46→20:14)
[2018-06-29 05:00] VITALS: BP 116/63
[2018-06-29] MEDS: FREE WATER GT SCH ×3 (05:05→17:36)
[2018-06-29 05:19] LABS: Calcium 9.1 mg/dL (8.5-10.1); Potassium 3.7 mmol/L (3.5-5.1)
[2018-06-29] MEDS: MEROPENEM 1GM IVPB 100 ML IV SCH ×3 (05:25→21:45)
[2018-06-29] MEDS: VANCOMYCIN 750 MG in D5W 5% 250 ML IV SCH ×2 (05:52→23:26)
[2018-06-29 09:00] VITALS: BP 105/65
[2018-06-29] MEDS: LORazepam 2MG/ML-1ML VIAL IV PRN (09:44)
[2018-06-29] MEDS: MULTIPLE VITAMINS W/ MINERALS TAB PO SCH (11:10)
[2018-06-29] MEDS: ASCORBIC ACID 500 MG TAB PO SCH ×2 (11:11→21:46)
[2018-06-29 13:00] VITALS: BP 116/77
[2018-06-29] MEDS ORDERED: METOPROLOL TARTRATE 1MG/1ML-5ML VIAL IV PRN ×2 (14:15→14:30)
[2018-06-29 17:00] VITALS: BP 91/58
[2018-06-29 22:00] VITALS: BP 106/79
[2018-06-30] MEDS: FREE WATER GT SCH ×4 (00:42→18:11)
[2018-06-30] MEDS: ACETAMINOPHEN 500 MG TAB PO PRN (04:23)
[2018-06-30 05:00] VITALS: BP 142/89
[2018-06-30] MEDS: MEROPENEM 1GM IVPB 100 ML IV SCH ×3 (05:55→22:33)
[2018-06-30 05:56] LABS: Basophils # (auto) 0.1 uL; Basophils % (auto) 0.6 % (0.0-2.0); Eosinophils # (auto) 0.2 uL; Eosinophils % (auto) 1.6 % (0.0-7.0); Hematocrit 38.4 % (36.0-46.0); Hemoglobin 12.6 g/dL (12.2-16.2); Lymphocytes # (auto) 2.2 uL; Lymphocytes % (auto) 20.9 % (10.0-50.0); Mean Corpuscular Hemoglobin 29.1 pg (28.0-32.0); Mean Corpuscular Hgb Conc. 32.9 g/dL (32.0-36.0); Mean Corpuscular Volume 88.4 fL (80.0-100.0); Monocytes # (auto) 0.8 uL; Monocytes % (auto) 7.7 % (0.0-12.0); Neutrophils # (auto) 7.4 uL; Neutrophils % (auto) 69.2 % (37.0-80.0); Platelet Count (auto) 304 10^3/uL (140-450); Red Blood Cells 4.34 10^6/uL (4.0-5.20); Red Cell Distribution Width 15.7 % (11.8-14.3); White Blood Cell 10.6 10^3/uL (4.4-10.8)
[2018-06-30 06:15] LABS: Albumin 3.7 g/dL (3.4-5.0); Calcium 9.2 mg/dL (8.5-10.1); Potassium 3.8 mmol/L (3.5-5.1)
[2018-06-30 06:17] LABS: Bilirubin, Total 0.3 mg/dL (0.2-1.0); Total Protein 8.3 g/dL (6.4-8.2)
[2018-06-30 08:45] VITALS: BP 119/82
[2018-06-30] MEDS: LORazepam 2MG/ML-1ML VIAL IV PRN (09:12)
[2018-06-30] MEDS ORDERED: MORPHINE SULFATE 10 MG/ML INJ 1ML SDV IV PRN (11:00)
[2018-06-30] MEDS: MULTIPLE VITAMINS W/ MINERALS TAB PO SCH (11:47)
[2018-06-30] MEDS: SODIUM CHLORIDE 0.9% 1,000 ML IV SCH ×2 (11:47→18:12)
[2018-06-30] MEDS: ASCORBIC ACID 500 MG TAB PO SCH ×2 (11:52→22:31)
[2018-06-30] MEDS: VANCOMYCIN 750 MG in D5W 5% 250 ML IV SCH ×2 (11:52→23:28)
[2018-06-30 13:28] VITALS: BP 138/81
[2018-06-30 16:58] VITALS: BP 139/68
[2018-06-30 22:00] VITALS: BP 121/77
[2018-07-01] MEDS: FREE WATER GT SCH ×4 (00:45→18:00)
[2018-07-01] MEDS: LORazepam 2MG/ML-1ML VIAL IV PRN ×3 (02:21→21:35)
[2018-07-01] MEDS: SODIUM CHLORIDE 0.9% 1,000 ML IV SCH ×2 (04:46→11:45)
[2018-07-01 05:00] VITALS: BP 108/69
[2018-07-01] MEDS: Jevity 1.2 Cal/Fiber 1 Liter GT SCH (05:09)
[2018-07-01] MEDS: MEROPENEM 1GM IVPB 100 ML IV SCH ×3 (07:10→22:00)
[2018-07-01 09:03] VITALS: BP 104/63
[2018-07-01 09:28] LABS: Free T3 3.99 pg/mL (2.3-4.2); Free T4 (Free Thyroxine) 1.32 ng/dL (0.89-1.76)
[2018-07-01] MEDS: MULTIPLE VITAMINS W/ MINERALS TAB PO SCH (09:46)
[2018-07-01] MEDS: ASCORBIC ACID 500 MG TAB PO SCH ×2 (09:46→22:00)
[2018-07-01] MEDS: VANCOMYCIN 1GM/250ML 250 ML IV SCH ×2 (11:00→23:00)
[2018-07-01 13:00] VITALS: BP 90/58
[2018-07-01 17:00] VITALS: BP 103/61
[2018-07-01 21:51] VITALS: BP 106/88
[2018-07-02] MEDS: SODIUM CHLORIDE 0.9% 1,000 ML IV SCH ×2 (02:03→16:21)
[2018-07-02 05:00] VITALS: BP 102/54
[2018-07-02] MEDS: MEROPENEM 1GM IVPB 100 ML IV SCH ×3 (05:31→22:04)
[2018-07-02] MEDS: LORazepam 2MG/ML-1ML VIAL IV PRN ×5 (05:33→23:56)
[2018-07-02] MEDS: FREE WATER GT SCH ×5 (06:40→23:57)
[2018-07-02] MEDS: Jevity 1.2 Cal/Fiber 1 Liter GT SCH (06:41)
[2018-07-02 08:53] VITALS: BP 98/60
[2018-07-02] MEDS: ASCORBIC ACID 500 MG TAB PO SCH ×2 (10:00→22:04)
[2018-07-02] MEDS: MULTIPLE VITAMINS W/ MINERALS TAB PO SCH (10:00)
[2018-07-02] MEDS: VANCOMYCIN 1GM/250ML 250 ML IV SCH ×2 (11:00→23:19)
[2018-07-02 12:43] VITALS: BP 111/57
[2018-07-02 17:00] VITALS: BP 102/61
[2018-07-02 21:54] VITALS: BP 95/53
[2018-07-03] MEDS: LORazepam 2MG/ML-1ML VIAL IV PRN ×3 (04:19→15:38)
[2018-07-03 05:10] VITALS: BP 89/55
[2018-07-03] MEDS: FREE WATER GT SCH ×3 (06:32→17:38)
[2018-07-03] MEDS: SODIUM CHLORIDE 0.9% 1,000 ML IV SCH (06:33)
[2018-07-03] MEDS: MEROPENEM 1GM IVPB 100 ML IV SCH ×2 (06:33→14:00)
[2018-07-03 09:00] VITALS: BP 126/73
[2018-07-03 10:08] LABS: Basophils # (auto) 0.1 uL; Basophils % (auto) 0.8 % (0.0-2.0); Eosinophils # (auto) 0.2 uL; Eosinophils % (auto) 2.6 % (0.0-7.0); Hematocrit 37.4 % (36.0-46.0); Hemoglobin 12.3 g/dL (12.2-16.2); Lymphocytes # (auto) 1.8 uL; Lymphocytes % (auto) 19.1 % (10.0-50.0); Mean Corpuscular Hemoglobin 28.8 pg (28.0-32.0); Mean Corpuscular Hgb Conc. 32.9 g/dL (32.0-36.0); Mean Corpuscular Volume 87.5 fL (80.0-100.0); Monocytes # (auto) 0.7 uL; Monocytes % (auto) 7.6 % (0.0-12.0); Neutrophils # (auto) 6.6 uL; Neutrophils % (auto) 69.9 % (37.0-80.0); Platelet Count (auto) 291 10^3/uL (140-450); Red Blood Cells 4.28 10^6/uL (4.0-5.20); Red Cell Distribution Width 15.5 % (11.8-14.3); White Blood Cell 9.4 10^3/uL (4.4-10.8)
[2018-07-03 10:24] LABS: Albumin 3.8 g/dL (3.4-5.0); Calcium 9.5 mg/dL (8.5-10.1); Potassium 3.8 mmol/L (3.5-5.1)
[2018-07-03 10:28] LABS: Bilirubin, Total 0.5 mg/dL (0.2-1.0); Total Protein 8.5 g/dL (6.4-8.2)
[2018-07-03 11:25] LABS: Prothrombin Time 10.7 sec (9.27-12.13)
[2018-07-03] MEDS: ASCORBIC ACID 500 MG TAB PO SCH (11:39)
[2018-07-03] MEDS: MULTIPLE VITAMINS W/ MINERALS TAB PO SCH (11:39)
[2018-07-03 13:00] VITALS: BP 96/56
[2018-07-03] MEDS ORDERED: LIDOCAINE 1% (LOCAL ANESTH.) PF 5ml SDV ID ONE (14:15)
[2018-07-03 15:29] VITALS: BP 96/56
[2018-07-03 17:00] VITALS: BP 124/86
[2018-07-03] MEDS ORDERED: MEROPENEM 1GM IVPB 100 ML IV SCH (17:30)
[2018-07-03] MEDS ORDERED: SODIUM CHLOR 0.9% PF (SALINE LOCK) 10ML VIAL/SYR IV SCH (22:00)
== END 2018-07-03 18:22 | disposition home health service (06) | DRG 466 ==
LOC: ER 14:17 → TELE 17:00 → TELE-EAST 19:50
PROVIDERS: ADMIT Internal Medicine; ATTEND Internal Medicine Pulmonary Disease
PROC: 02HV33Z Insertion of Infusion Device into Superior Vena Cava, Percutaneous Approach (ICD-10-PCS; principal; 2018-07-03)
DX: T83.518A Infection and inflammatory reaction due to other urinary catheter, initial encounter (principal); A41.9 Sepsis, unspecified organism; L89.154 Pressure ulcer of sacral region, stage 4; R53.2 Functional quadriplegia; E44.0 Moderate protein-calorie malnutrition; K94.23 Gastrostomy malfunction; M46.28 Osteomyelitis of vertebra, sacral and sacrococcygeal region; N39.0 Urinary tract infection, site not specified; G80.9 Cerebral palsy, unspecified; Z16.12 Extended spectrum beta lactamase (ESBL) resistance; B96.20 Unspecified Escherichia coli [E. coli] as the cause of diseases classified elsewhere; Y84.6 Urinary catheterization as the cause of abnormal reaction of the patient, or of later complication, without mention of misadventure at the time of the procedure; Z74.01 Bed confinement status; Z68.22 Body mass index [BMI] 22.0-22.9, adult
CPT/HCPCS: 36415; 36569; 51702; 71045; 72192; 80048; 80053; 80202; 81001; 82962; 83605; 83735; 84439; 84443; 84481; 85025; 85610; 85652; 85730; 87040; 87077; 87081; 87086; 87088; 87186; 87205; 93005; 93306; 94761; 96365; 96367; 96375; G0378; J0696; J1335; J2185; J2543; J3490; J7060; P9047

== ENCOUNTER 2019-09-11 09:15 | Inpatient (IN) | payer MEDICAID ==
[~2019-09-11] VITALS: Ht 144.8 cm; Wt 31.2 kg
[~2019-09-11 09:15] MED LIST changes: -AMPI500C8 PO; -FLUC200T50 PO; -LACT10SO3 PEG; -LEVO-28 PO; +[UNRECOGNIZED DRUG - CODE] PO
[2019-09-11] MEDS ORDERED: SODIUM CHLORIDE 0.9% 1,000 ML IV ONE ×3 (09:41→17:00)
[2019-09-11] MEDS ORDERED: cefTRIAXone 1GM/50ML D5W 50 ML IV ONE (09:45)
[2019-09-11 10:28] LABS: Basophils # (auto) 0.1 uL; Basophils % (auto) 0.6 % (0.0-2.0); Eosinophils # (auto) 0 uL; Eosinophils % (auto) 0.2 % (0.0-7.0); Hematocrit 44.6 % (36.0-46.0); Lymphocytes # (auto) 1.6 uL; Lymphocytes % (auto) 17.8 % (10.0-50.0); Mean Corpuscular Hgb Conc. 33.6 g/dL (32.0-36.0); Mean Corpuscular Volume 89.3 fL (80.0-100.0); Monocytes # (auto) 0.5 uL; Monocytes % (auto) 5.8 % (0.0-12.0); Neutrophils # (auto) 6.8 uL; Neutrophils % (auto) 75.6 % (37.0-80.0); Nucleated Red Blood Cells % 0.1 %; Platelet Count (auto) 248 10^3/uL (140-450); Red Blood Cells 4.99 10^6/uL (4.0-5.20); Red Cell Distribution Width 14.2 % (11.8-14.3)
[2019-09-11 10:43] LABS: Albumin 3.9 g/dL (3.4-5.0); Calcium 9.5 mg/dL (8.5-10.1); Potassium 3.6 mmol/L (3.5-5.1)
[2019-09-11 10:46] LABS: BUN/Creatinine Ratio 19.6; Bilirubin, Total 0.4 mg/dL (0.2-1.0); Total Protein 9.2 g/dL (6.4-8.2)
[2019-09-11 11:17] LABS: Urine Bacteria MOD /hpf (None Seen); Urine Blood 2+ /uL (Negative); Urine Specific Gravity 1.013 (1.001-1.035); Urine WBC 27 /hpf (0 - 5)
[2019-09-11] MEDS ORDERED: NITROGLYCERIN 0.4 MG SL TAB SL PRN (13:30)
[2019-09-11] MEDS ORDERED: MORPHINE SULF INJ 2 MG/ML SYRINGE 1ML IV PRN (13:30)
[2019-09-11] MEDS ORDERED: GASTROGRAFIN 30 ML SOL ONE (14:14)
[2019-09-11] MEDS: FAMOTIDINE (10MG/ML) 2ML VL IV SCH (14:37)
[2019-09-11] MEDS: CLINDAMYCIN 600MG IV 50 ML IV SCH ×2 (14:37→21:22)
[2019-09-11] MEDS: SODIUM CHLORIDE 0.9% 1,000 ML IV SCH ×2 (14:37→23:27)
[2019-09-11 16:00] VITALS: BP 83/46
[2019-09-11 17:31] VITALS: BP 83/46
[2019-09-11] MEDS ORDERED: VALP250S16 PO (18:34)
[2019-09-11] MEDS ORDERED: BACL10TA PO (18:34)
[2019-09-11] MEDS ORDERED: TIZA4CAP7 PO (18:34)
[2019-09-11] MEDS ORDERED: NUTR-1080 GT (18:34)
[2019-09-11 23:14] VITALS: BP 108/61
[2019-09-12] MEDS: FAMOTIDINE (10MG/ML) 2ML VL IV SCH ×2 (01:35→13:10)
[2019-09-12 05:27] VITALS: BP 111/57
[2019-09-12] MEDS: CLINDAMYCIN 600MG IV 50 ML IV SCH (05:28)
[2019-09-12 08:55] VITALS: BP 92/46
[2019-09-12] MEDS ORDERED: cefTRIAXone 1GM/50ML D5W 50 ML IV SCH (09:00)
[2019-09-12] MEDS: SODIUM CHLORIDE 0.9% 1,000 ML IV SCH ×2 (09:27→15:35)
[2019-09-12] MEDS ORDERED: MORPHINE SULF INJ 2 MG/ML SYRINGE 1ML IV ONE (10:00)
[2019-09-12] MEDS ORDERED: GASTROGRAFIN 30 ML SOL ONE (10:15)
[2019-09-12 13:00] VITALS: BP 96/42
[2019-09-12] MEDS ORDERED: LACTULOSE 20Gm/30ML SOLN PEG ONE (13:45)
[2019-09-12] MEDS: VALPROIC ACID 250 MG/5 ML ORAL SOLN GT SCH ×2 (14:27→21:57)
[2019-09-12] MEDS ORDERED: Jevity 1.2 Cal/Fiber 1 Liter GT SCH (14:45)
[2019-09-12 16:42] VITALS: BP 109/69
[2019-09-12 22:00] VITALS: BP 109/53
[2019-09-13] MEDS: FAMOTIDINE (10MG/ML) 2ML VL IV SCH ×2 (02:39→13:23)
[2019-09-13 05:00] VITALS: BP 97/46
[2019-09-13 09:01] VITALS: BP 102/70
[2019-09-13] MEDS: LACTULOSE 20Gm/30ML SOLN PEG SCH (10:00)
[2019-09-13] MEDS ORDERED: ERTAPENEM SOD INJ 1 GM in SODIUM CHL 0.9% 50 ML IV SCH (10:00)
[2019-09-13] MEDS: VALPROIC ACID 250 MG/5 ML ORAL SOLN GT SCH ×2 (10:13→21:28)
[2019-09-13] MEDS: SODIUM CHLORIDE 0.9% 1,000 ML IV SCH (11:48)
[2019-09-13 12:16] VITALS: BP 103/65
[2019-09-13 16:20] VITALS: BP 98/70
[2019-09-13] MEDS ORDERED: LEVOFLOXACIN 500 MG TAB PO ONE (18:00)
[2019-09-13 21:50] VITALS: BP 119/72
[2019-09-14] MEDS: FAMOTIDINE (10MG/ML) 2ML VL IV SCH (01:20)
[2019-09-14 05:00] VITALS: BP 100/61
[2019-09-14] MEDS: SODIUM CHLORIDE 0.9% 1,000 ML IV SCH (05:55)
[2019-09-14 06:33] LABS: Basophils # (auto) 0 uL; Basophils % (auto) 0.4 % (0.0-2.0); Eosinophils # (auto) 0.1 uL; Eosinophils % (auto) 0.7 % (0.0-7.0); Hematocrit 43.4 % (36.0-46.0); Hemoglobin 14.4 g/dL (12.2-16.2); Lymphocytes # (auto) 1.8 uL; Lymphocytes % (auto) 17.5 % (10.0-50.0); Mean Corpuscular Hemoglobin 30.2 pg (28.0-32.0); Mean Corpuscular Hgb Conc. 33.3 g/dL (32.0-36.0); Mean Corpuscular Volume 90.9 fL (80.0-100.0); Monocytes # (auto) 0.6 uL; Monocytes % (auto) 5.9 % (0.0-12.0); Neutrophils # (auto) 7.6 uL; Neutrophils % (auto) 75.5 % (37.0-80.0); Platelet Count (auto) 282 10^3/uL (140-450); Red Blood Cells 4.77 10^6/uL (4.0-5.20); Red Cell Distribution Width 14.2 % (11.8-14.3)
[2019-09-14 06:49] LABS: Albumin 3.3 g/dL (3.4-5.0); Calcium 8.7 mg/dL (8.5-10.1); INR 1.07 (0.9-1.15); Magnesium 2.3 mg/dL (1.6-2.6); Partial Thromboplastin Time 29.5 sec (23.64-32.05)
[2019-09-14 06:53] LABS: Bilirubin, Total 0.3 mg/dL (0.2-1.0); Phosphorus 2.8 mg/dL (2.5-4.90); Total Protein 8.3 g/dL (6.4-8.2)
[2019-09-14 09:00] VITALS: BP 111/66
[2019-09-14] MEDS: LACTULOSE 20Gm/30ML SOLN PEG SCH (10:00)
[2019-09-14] MEDS ORDERED: ENOXAPARIN SOD 40 MG/0.4 ML SYRINGE SC SCH (10:00)
[2019-09-14] MEDS: VALPROIC ACID 250 MG/5 ML ORAL SOLN GT SCH (10:01)
[2019-09-14 13:00] VITALS: BP 118/62
[2019-09-14] MEDS ORDERED: TRAZ50TA2 GT (16:37)
[2019-09-14] MEDS ORDERED: FLUO-125 GT (16:37)
[2019-09-14] MEDS ORDERED: BACL10TA GT (16:37)
[2019-09-14] MEDS ORDERED: NUTR-1080 GT (16:37)
[2019-09-14] MEDS ORDERED: [UNRECOGNIZED DRUG - CODE] GT (16:37)
[2019-09-14] MEDS ORDERED: LEVO250T69 GT (16:37)
[2019-09-14] MEDS ORDERED: ARIP1TAB7 GT (16:37)
[2019-09-14 17:00] VITALS: BP 116/58
[2019-09-14] MEDS ORDERED: LEVOFLOXACIN 250 MG TAB PO SCH (17:00)
[2019-09-15] MEDS ORDERED: FAMOTIDINE (10MG/ML) 2ML VL IV SCH (10:00)
== END 2019-09-14 18:05 | disposition home or self-care (01) | DRG 252 ==
LOC: ER 09:15 → EDBD 09:15 → TELE 09:16 → TELE-EAST 15:39
PROVIDERS: ADMIT Internal Medicine; ATTEND Internal Medicine
PROC: 0D20XUZ Change Feeding Device in Upper Intestinal Tract, External Approach (ICD-10-PCS; principal; 2019-09-12)
DX: K94.23 Gastrostomy malfunction (principal); A41.9 Sepsis, unspecified organism; E43 Unspecified severe protein-calorie malnutrition; L89.159 Pressure ulcer of sacral region, unspecified stage; K94.22 Gastrostomy infection; L03.311 Cellulitis of abdominal wall; G80.9 Cerebral palsy, unspecified; N20.0 Calculus of kidney; L89.90 Pressure ulcer of unspecified site, unspecified stage; Y83.3 Surgical operation with formation of external stoma as the cause of abnormal reaction of the patient, or of later complication, without mention of misadventure at the time of the procedure; G40.909 Epilepsy, unspecified, not intractable, without status epilepticus; Z74.01 Bed confinement status; Z87.440 Personal history of urinary (tract) infections; Z68.1 Body mass index [BMI] 19.9 or less, adult
CPT/HCPCS: 36415; 70450; 71045; 74018; 74021; 74176; 80053; 81001; 83605; 83735; 84100; 85025; 85610; 85730; 87040; 87086; 87088; 87186; 87493; G0378; J0696; J1335; J3490

== ENCOUNTER 2020-03-17 13:11 | Emergency (ER) | payer MEDICAID ==
[~2020-03-17 13:11] MED LIST changes: +ARIP1TAB7 GT; -ARIP1TAB7 PO; +BACL10TA GT; -BACL10TA PO; +FLUO-125 GT; -FLUO-125 PO; +LEVO250T69 GT; +NUTR-1080 GT; +TRAZ50TA2 GT; -TRAZ50TA2 PO; +[UNRECOGNIZED DRUG - CODE] GT; -[UNRECOGNIZED DRUG - CODE] PO
[2020-03-17] MEDS ORDERED: LIDOCAINE HCL 2 %PF INJ 10ML AMP IJ ONE (17:15)
[2020-03-17 17:31] VITALS: BP 111/65
[2020-03-17] MEDS ORDERED: GASTROGRAFIN 30 ML SOL ONE (18:10)
== END 2020-03-17 19:02 | disposition home or self-care (01) ==
LOC: ER 13:11
DX: Z43.1 Encounter for attention to gastrostomy (principal)
CPT/HCPCS: 43762; 74018; 99284; Q9963